=== PATIENT | male | born 1950 | race Hispanic/Latino ===

== ENCOUNTER 2017-11-16 21:01 | Emergency (ER) | payer MEDICARE ==
--- NOTE | 2017-11-16 22:30 | ED PDOC ---
HPI: General Adult Time Seen by Provider: 11/16/17 22:01 Chief Complaint (Nursing): Medical Clearance History Per: Patient History/Exam Limitations: no limitations Onset/Duration Of Symptoms: Hrs Additional Complaint(s): Hx of anxiety, GI problem (under care of Dr. Dior) presenting with police for medical and psychiatric clearance. Patient has no complaint other than shoulder stiffness. No injuries. Denies suicidal or homidical ideation. Past Medical History Reviewed: Historical Data, Nursing Documentation, Vital Signs Vital Signs: Last Vital Signs Temp 98.0 F 11/16/17 21:04 Pulse 55 L 11/16/17 21:04 Resp 19 11/16/17 21:04 BP 160/91 H 11/16/17 21:04 Pulse Ox 95 11/16/17 21:04 - Medical History PMH: Bipolar Disorder - Family History Family History: States: Unknown Family Hx - Immunization History Hx Tetanus Toxoid Vaccination: No Hx Influenza Vaccination: No Hx Pneumococcal Vaccination: No - Home Medications Home Medications: Ambulatory Orders Medication Instructions Recorded Neurontin 12/06/12 Prevacid 12/06/12 Seroquel 12/06/12 - Allergies Allergies/Adverse Reactions: Allergies Allergy/AdvReac Type Severity Reaction Status Date / Time bupropion [From Wellbutrin] Allergy Mild unable to Verified 11/16/17 21:08 move legs sertraline [From Zoloft] Allergy Mild RASH Verified 11/16/17 21:08 Review of Systems ROS Statement: Except As Marked, All Systems Reviewed And Found Negative Physical Exam - Reviewed Nursing Documentation Reviewed: Yes Vital Signs Reviewed: Yes - Physical Exam Appears: Positive for: Well, Non-toxic, No Acute Distress Head Exam: Positive for: ATRAUMATIC, NORMAL INSPECTION, NORMOCEPHALIC Skin: Positive for: Normal Color, Warm, DRY Eye Exam: Positive for: EOMI, Normal appearance, PERRL ENT: Positive for: Normal ENT Inspection Neck: Positive for: Normal, Painless ROM Cardiovascular/Chest: Positive for: Regular Rate, Rhythm Respiratory: Positive for: CNT, Normal Breath Sounds Gastrointestinal/Abdominal: Positive for: Normal Exam, Soft Back: Positive for: Normal Inspection Extremity: Positive for: Normal ROM. Negative for: Deformity, Swelling Neurologic/Psych: Positive for: Alert, Oriented - ECG O2 Sat by Pulse Oximetry: 95 Pulse Ox Interpretation: Normal Medical Decision Making Medical Decision Making: Patient has no acute medical or psychiatric complaint warranting workup at this time. Patient has no suicidal or homicidal ideation, no psychiatric complaints Disposition - Clinical Impression Clinical Impression: Shoulder pain - Disposition Disposition: Discharged/Transfer to Law Enforcement Disposition Time: 22:30 Condition: STABLE Additional Instructions: Medically and psychiatrically cleared for incarceration. Instructions: General (DC), Shoulder Pain (DC)
[2017-11-16 22:45] VITALS: BP 154/86; PULSE 65; RESP 16; TEMP 98.4; O2SAT 100
== END 2017-11-16 22:51 ==
LOC: H.ER 21:01
DX: M25.519 Pain in unspecified shoulder (principal); F31.9 Bipolar disorder, unspecified; F41.9 Anxiety disorder, unspecified